=== PATIENT | female | born 1945 | race Two or more races ===

== ENCOUNTER 2021-10-08 16:06 | Emergency (ER) | payer OTHER ==
[~2021-10-08] VITALS: Ht 162.6 cm; Wt 86.3 kg
[2021-10-08] MEDS ORDERED: LIDOCAINE 1% HCL (LOCAL ANESTH.) INJ 20ML MDV IJ ONE (17:30)
[2021-10-08 17:47] VITALS: BP 150/70
[2021-10-08] MEDS ORDERED: CEPH-509 PO (17:56)
== END 2021-10-08 18:21 | disposition home or self-care (01) ==
LOC: ER 16:06
DX: S71.111A Laceration without foreign body, right thigh, initial encounter (principal); Z79.899 Other long term (current) drug therapy; W26.8XXA Contact with other sharp object(s), not elsewhere classified, initial encounter; Y93.89 Activity, other specified; Y92.89 Other specified places as the place of occurrence of the external cause; Y99.8 Other external cause status
CPT/HCPCS: 12002; 99283; J2001